=== PATIENT | male | born 1965 | race Caucasian/White ===

== ENCOUNTER 2018-03-11 09:25 | Inpatient (IN) | payer BC ==
[2018-03-11 10:18] LABS: Amphetamine Screen,Urine Not Detected (NotDetected); Barbiturate Screen,Urine Not Detected (NotDetected); Benzodiazepines Screen,Urine Not Detected (NotDetected); Cocaine Screen,Urine Not Detected (NotDetected); Methadone Screen, Urine Not Detected (NotDetected); Opiate Screen,Urine Not Detected (NotDetected); Oxycodone Screen, Urine Not Detected (NotDetected); Phencyclidine Screen,Urine Not Detected (NotDetected); Tricyclic Antidepressant,Urine Not Detected (NotDetected); Urn Cannabinoid Scrn Not Detected (NotDetected)
--- NOTE | 2018-03-11 10:32 | ED ---
Psych HPI - General Chief Complaint: Psychiatric Symptoms Stated Complaint: EPS eval Time Seen by Provider: 03/11/18 09:32 Source: patient, RN notes reviewed, old records reviewed Mode of arrival: ambulatory - History of Present Illness Initial Comments: 52-year-old male presents emergency Department with a petition from his social scientist. Apparently patient's been hearing voices. He reports that he's been diagnosed with schizophrenia anxiety and depression for many years. He is followed up outpatient only with physicians and is actively looking for psychiatrist. At this time he reports that he's been on multiple medication changes throughout the past few years. He was trying to get established with psychiatrist to figure out the exact medications he needs. He states that he has not been hearing any significant voices are telling him to harm himself. He denies any suicidal or homicidal ideation. He states that he has had some trouble sleeping, but has had increase in his appetite. He reports these been having a hard time dealing with his insurance policies in order to follow-up with psychiatrist. - Related Data Home Medications Medication Instructions Recorded Confirmed Allopurinol [Zyloprim] 100 mg PO DAILY 03/11/18 03/11/18 Colchicine [Colchicine] 0.6 mg PO DAILY 03/11/18 03/11/18 Ergocalciferol [Vitamin D2] 50,000 unit PO TH 03/11/18 03/11/18 Escitalopram [Lexapro] 20 mg PO DAILY 03/11/18 03/11/18 Tamsulosin [Flomax] 0.4 mg PO DAILY 03/11/18 03/11/18 hydrOXYzine PAMOATE 50 mg PO DAILY 03/11/18 03/11/18 Allergies Allergy/AdvReac Type Severity Reaction Status Date / Time No Known Allergies Allergy Verified 03/11/18 10:22 Review of Systems ROS Statement: Those systems with pertinent positive or pertinent negative responses have been documented in the HPI. ROS Other: All systems not noted in ROS Statement are negative. Past Medical History Past Medical History: Unable to Obtain History of Any Multi-Drug Resistant Organisms: None Reported Past Surgical History: Unable to Obtain Past Psychological History: Anxiety, Depression, Schizophrenia Smoking Status: Never smoker Past Alcohol Use History: None Reported Past Drug Use History: None Reported General Exam - General Exam Comments Initial Comments: Alert and well-appearing 52-year-old male. No acute distress. Limitations: no limitations General appearance: alert, in no apparent distress Head exam: Present: atraumatic, normocephalic, normal inspection Eye exam: Present: normal appearance, PERRL, EOMI. Absent: scleral icterus, conjunctival injection, periorbital swelling ENT exam: Present: normal exam, mucous membranes moist Neck exam: Present: normal inspection. Absent: tenderness, meningismus, lymphadenopathy Respiratory exam: Present: normal lung sounds bilaterally. Absent: respiratory distress, wheezes, rales, rhonchi, stridor Cardiovascular Exam: Present: regular rate, normal rhythm, normal heart sounds. Absent: systolic murmur, diastolic murmur, rubs, gallop, clicks GI/Abdominal exam: Present: soft, normal bowel sounds. Absent: distended, tenderness, guarding, rebound, rigid Extremities exam: Present: normal inspection, full ROM, normal capillary refill. Absent: tenderness, pedal edema, joint swelling, calf tenderness Back exam: Present: normal inspection Neurological exam: Present: alert, oriented X3, CN II-XII intact Psychiatric exam: Present: normal affect, normal mood, other (Apparently according to patient's condition and his been responding to internal stimuli. On my initial examination he has been well, he is been alert and oriented. No responses to internal stimuli. Seems to have good decision-making. Is talking about falling up with psychiatrist to change his medications appropriately according to his transplant.) Skin exam: Present: warm, dry, intact, normal color. Absent: rash Course Vital Signs 03/11/18 03/11/18 03/11/18 09:27 13:00 15:41 Temperature 98.6 F 97.5 F L Pulse Rate 99 67 66 Respiratory 18 16 16 Rate Blood Pressure 188/86 134/78 116/75 O2 Sat by Pulse 99 95 95 Oximetry Medical Decision Making - Medical Decision Making 52-year-old male sent in for psychiatric evaluation and petitioned by social scientist for responsive internal stimuli. On my exam he appears well. He seems to have good decision-making. He has not responded to any internal stimuli and has been appropriate while in the emergency room. He is medically clear for psychiatric evaluation. Patient was evaluated by EPS. They feel the patient is admitted. He is willing to sign in. Patient will be admitted at this time. - Lab Data Lab Results 03/11/18 Range/Units 09:41 Urine Opiates Screen Not Detected (NotDetected) Ur Oxycodone Screen Not Detected (NotDetected) Urine Methadone Screen Not Detected (NotDetected) Ur Propoxyphene Screen Not Detected (NotDetected) Ur Barbiturates Screen Not Detected (NotDetected) U Tricyclic Antidepress Not Detected (NotDetected) Ur Phencyclidine Scrn Not Detected (NotDetected) Ur Amphetamines Screen Not Detected (NotDetected) U Methamphetamines Scrn Not Detected (NotDetected) U Benzodiazepines Scrn Not Detected (NotDetected) Urine Cocaine Screen Not Detected (NotDetected) U Marijuana (THC) Screen Not Detected (NotDetected) Disposition Clinical Impression: Depression, Auditory hallucination Disposition: ADMITTED IP TO THIS HOSP Condition: Good Is patient prescribed a controlled substance at d/c from ED?: No If prescribed controlled substance>3 days was MAPS reviewed?: No When asked, does pt state using other controlled substances?: No Referrals: Esther Carrera DO [Primary Care Provider] - 1-2 days Time of Disposition: 15:46
[2018-03-11 13:01] VITALS: RESP 16
[2018-03-11] MEDS ORDERED: MAG HYDROX/AL HYDROX/SIMETH 30 ML CUP PO PRN (16:57)
[2018-03-11] MEDS ORDERED: ACETAMINOPHEN TAB 325 MG TAB PO PRN (16:57)
[2018-03-11] MEDS ORDERED: LORazepam 1 MG TAB PO PRN (16:57)
[2018-03-11] MEDS ORDERED: MAGNESIUM HYDROXIDE 2,400 MG/10 ML CUP PO PRN (16:57)
[2018-03-11] MEDS ORDERED: ZIPRASIDONE 20 MG VIAL IM PRN (16:57)
[2018-03-11] MEDS ORDERED: LORazepam 2 MG/ML INJ IM PRN (16:59)
[2018-03-11 17:09] VITALS: BMI 27.1
--- NOTE | 2018-03-11 21:02 | CONS ---
CONSULTATION DATE OF SERVICE: 03/11/18 REASON FOR CONSULTATION: Medical management requested by Dr. Bailey. CONSULTATION: This is a pleasant 52-year-old patient of Dr. Carrera. The patient is brought in by petition by the electromedical equipment technician. The patient has been hearing voices. The patient does have a chronic history of schizophrenia, anxiety, depression. The patient is somewhat restless during his interview, but rather pleasant otherwise. The patient's chronic stable medical conditions include BPH, gout, and GERD symptoms coming once or twice a week. The patient sometimes has trouble sleeping. REVIEW OF SYSTEMS: CONSTITUTIONAL: None. HEENT none. Respiratory none. Cardiovascular none. Gastrointestinal occasional heartburn. Genitourinary none. Musculoskeletal none. Dermatological and hematologic, lymphatic none. Psychiatry as above. Neurological none. PAST MEDICAL HISTORY: Schizophrenia, anxiety, depression, BPH, gout, GERD. PAST SURGICAL HISTORY: None stated. SOCIAL HISTORY: Lives by himself. Does not smoke or drink alcohol. Denies use of any recreational drugs. HOME MEDICATIONS: 1. Vitamin D2 50,000 units every . 2. Hydroxyzine 50 mg p.o. daily. 3. Flomax 0.4 mg daily. 4. Lexapro 20 mg p.o. daily. 5. Colchicine 0.6 mg p.o. daily. 6. Allopurinol 100 mg p.o. daily. ALLERGIES: None. PHYSICAL EXAMINATION: Temperature 97.2, pulse 71, respiration 16, blood pressure 120/71, pulse ox 96% on room air. General appearance: Average built, sitting up, somewhat restless. Eyes: Pupils equal. Conjunctivae normal. HEENT: External appearance of nose and ears normal. Oral cavity normal. Neck JVD not raised. Mass not palpable. Respiratory effort normal. Lungs are clear. Cardiovascular: First and second sounds normal. No edema. ABDOMEN: Soft, nontender. Liver, spleen, not palpable. Lymphatics: No lymph nodes palpable in the neck and axilla. Psychiatry: Patient is slightly anxious. Formal psych evaluation not done. Neurological: Pupils equal. Cranial nerves grossly intact. Power and sensation grossly intact. INVESTIGATIONS: Urine drug screen negative. ASSESSMENT: 1. Benign prostatic hypertrophy. 2. Chronic gout. 3. Gastroesophageal reflux disease. 4. Other psych history is including auditory hallucinations which is symptom. PLAN: Home medications resumed. Care was discussed with the patient. Patient should follow up with Dr. Esther Carrera upon discharge. Thank you Dr. Bailey. OMERO / TOBI: [id number] /
[2018-03-12] MEDS: TAMSULOSIN 0.4 MG CAP.ER.24H PO SCH (08:36)
[2018-03-12] MEDS: hydrOXYzine PAMOATE 25 MG CAP PO SCH (08:36)
[2018-03-12] MEDS: COLCHICINE 0.6 MG EACH PO SCH (08:36)
[2018-03-12] MEDS: ESCITALOPRAM 20 MG TAB PO SCH (08:37)
[2018-03-12] MEDS: ALLOPURINOL 100 MG TAB PO SCH (08:37)
[2018-03-12 09:23] LABS: Basophils % (A) 1 %; Eosinophils # (A) 0.1 k/uL (0-0.7); Eosinophils % (A) 1 %; HGB 15.6 gm/dL (13.0-17.5); Lymphocytes # (A) 1.5 k/uL (1.0-4.8); Lymphocytes % (A) 25 %; MCH 31.5 pg (25.0-35.0); MCHC 34.7 g/dL (31.0-37.0); MCV 90.7 fL (80.0-100.0); Mean Platelet Volume 7.2; Monocytes # (A) 0.4 k/uL (0-1.0); Monocytes % (A) 7 %; Neutrophils # (A) 3.8 k/uL (1.3-7.7); Neutrophils % (A) 63 %; Platelet Count 220 k/uL (150-450); RBC 4.96 m/uL (4.30-5.90); RDW 13.5 % (11.5-15.5); WBC 5.9 k/uL (3.8-10.6)
[2018-03-12 09:36] LABS: Albumin 3.8 g/dL (3.5-5.0); Calcium 9.3 mg/dL (8.4-10.2); Potassium 4.3 mmol/L (3.5-5.1); Total Bilirubin 1.9 mg/dL (0.2-1.3); Total Protein 6.1 g/dL (6.3-8.2)
--- NOTE | 2018-03-12 14:21 | P.HP ---
Psychiatric H&P - . History & Physical: Allergies Allergy/AdvReac Type Severity Reaction Status Date / Time No Known Allergies Allergy Verified 03/11/18 10:22 Vital Signs Temp 97.9 F 03/12/18 07:04 Pulse 82 03/12/18 07:04 Resp 16 03/12/18 07:04 BP 132/82 03/12/18 07:04 Pulse Ox 96 03/11/18 16:25 Intake & Output 03/11/18 03/12/18 03/12/18 18:59 06:59 18:59 Weight 90.718 kg Laboratory Last Values WBC 5.9 k/uL (3.8-10.6) 03/12/18 09:00 RBC 4.96 m/uL (4.30-5.90) 03/12/18 09:00 Hgb 15.6 gm/dL (13.0-17.5) 03/12/18 09:00 Hct 45.0 % (39.0-53.0) 03/12/18 09:00 MCV 90.7 fL (80.0-100.0) 03/12/18 09:00 MCH 31.5 pg (25.0-35.0) 03/12/18 09:00 MCHC 34.7 g/dL (31.0-37.0) 03/12/18 09:00 RDW 13.5 % (11.5-15.5) 03/12/18 09:00 Plt Count 220 k/uL (150-450) 03/12/18 09:00 Neutrophils % 63 % 03/12/18 09:00 Lymphocytes % 25 % 03/12/18 09:00 Monocytes % 7 % 03/12/18 09:00 Eosinophils % 1 % 03/12/18 09:00 Basophils % 1 % 03/12/18 09:00 Neutrophils # 3.8 k/uL (1.3-7.7) 03/12/18 09:00 Lymphocytes # 1.5 k/uL (1.0-4.8) 03/12/18 09:00 Monocytes # 0.4 k/uL (0-1.0) 03/12/18 09:00 Eosinophils # 0.1 k/uL (0-0.7) 03/12/18 09:00 Basophils # 0.0 k/uL (0-0.2) 03/12/18 09:00 Sodium 144 mmol/L (137-145) 03/12/18 09:00 Potassium 4.3 mmol/L (3.5-5.1) 03/12/18 09:00 Chloride 106 mmol/L (98-107) 03/12/18 09:00 Carbon Dioxide 27 mmol/L (22-30) 03/12/18 09:00 Anion Gap 11 mmol/L 03/12/18 09:00 BUN 20 mg/dL (9-20) 03/12/18 09:00 Creatinine 1.46 mg/dL (0.66-1.25) H 03/12/18 09:00 Est GFR (CKD-EPI)AfAm 62 (>60 ml/min/1.73 sqM) 03/12/18 09:00 Est GFR (CKD-EPI)NonAf 54 (>60 ml/min/1.73 sqM) 03/12/18 09:00 Glucose 101 mg/dL (74-99) H 03/12/18 09:00 Calcium 9.3 mg/dL (8.4-10.2) 03/12/18 09:00 Total Bilirubin 1.9 mg/dL (0.2-1.3) H 03/12/18 09:00 AST 20 U/L (17-59) 03/12/18 09:00 ALT 34 U/L (21-72) 03/12/18 09:00 Alkaline Phosphatase 83 U/L (38-126) 03/12/18 09:00 Total Protein 6.1 g/dL (6.3-8.2) L 03/12/18 09:00 Albumin 3.8 g/dL (3.5-5.0) 03/12/18 09:00 Triglycerides 98 mg/dL (<150) 03/12/18 09:00 Cholesterol 214 mg/dL (<200) H 03/12/18 09:00 LDL Cholesterol, Calc 145 mg/dL (0-99) H 03/12/18 09:00 HDL Cholesterol 49 mg/dL (40-60) 03/12/18 09:00 TSH 5.160 mIU/L (0.465-4.680) H 03/12/18 09:00 Urine Opiates Screen Not Detected (NotDetected) 03/11/18 09:41 Ur Oxycodone Screen Not Detected (NotDetected) 03/11/18 09:41 Urine Methadone Screen Not Detected (NotDetected) 03/11/18 09:41 Ur Propoxyphene Screen Not Detected (NotDetected) 03/11/18 09:41 Ur Barbiturates Screen Not Detected (NotDetected) 03/11/18 09:41 U Tricyclic Antidepress Not Detected (NotDetected) 03/11/18 09:41 Ur Phencyclidine Scrn Not Detected (NotDetected) 03/11/18 09:41 Ur Amphetamines Screen Not Detected (NotDetected) 03/11/18 09:41 U Methamphetamines Scrn Not Detected (NotDetected) 03/11/18 09:41 U Benzodiazepines Scrn Not Detected (NotDetected) 03/11/18 09:41 Urine Cocaine Screen Not Detected (NotDetected) 03/11/18 09:41 U Marijuana (THC) Screen Not Detected (NotDetected) 03/11/18 09:41 03/12/18 14:21 Chief complaint I wanted to talk to a counselor and they petitioned me and sent me here. History of presenting illness Patient stated his primary care physician wanted him to see a counselor , so he looked up for names on the computer and went to [facility] services in january 2018. He felt his counselor was not helping him at all and so he left [facility] counseling and went to [facility] out-patient services. When his counselor at [facility] out patient services asked how he had felt about his previous therapist , he reports telling her hypothetically that he felt like slapping her, but did not really mean it. He currently states they mis- understood me and petitioned me, He stated I dont belong here, I really want to go home because I work. Patient repots being started on lexapro in december 2017, by his primary care physician Esther To for depression, anxiety and panic attacks. He describes his depression as not wanting to do anything, laying down isolated with no motivation. He reports poor sleep and appetite when depressed. He describes his anxiety and panic attacks as not being able to handle things/ life well in general. He also reports leaving every thing at hand and running home during his panic attacks. He reports worrying excessively for every thing. He reports worrying and getting depressed if he is expecting a call from some and doesnt hear from them. He claims his depression, anxiety and panic attacks have improved significantly after being started on lexapro. He states he is now able to sleep better and is able to move around instead of staying isolated. He denies current suicidal or homicidal ideations. Prior to being started on lexapro he claims to have heard his name being called and also reports seeing figures. After being started on lexapro he denies hearing is name being called and denies seeing figures. He denies paranoia. He reports remote history of hearing noises and seeing witch flying across his apartment and some one following him in . Denies currently. He reports enjoying computer games, watching TV , yard work and his job as a school custodian. He stated he was never got petitioned even though he had said all sorts of weird things to his therapist at [facility] in . He stated he wanted to see therapist to learn coping skills, social skills, how to handle things well when ever he gets into any deal better with situations when he gets into one etc. He stated he gets fearful and does not know how to deal with situations. He felt neglected and not being helped at the [facility] , but he denies calling there and threatening people over there. Past psychiatric history He reports history of depression from his teen age years. He claims he did not seek psychiatric help until his 30s . He claims to have attempted suicide three times between ages 16 and 17, via hanging, drinking chemicals and running his car gas in the garage. He stated none of those attempts worked and he got mad with each unsuccessful attempt and states he had finally gave up on suicide. He states it is waste of time, energy and claims it is not worth it. He reports to have not made any attempts since then. He states he wants to live for his family, for his job and for himself. He reports one psychiatric hospitalization at [facility] around the age of 33 for depression. 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 He reports being treated with Zoloft, ativan around the age of 33 DURING HIS HOSPITALIZATION at [place]. Destinee Vázquez klonopin in 2015 through LILIBETH Gurrola, in [address] Fredy Gurrola and vistaril in 2017 through PCP Esther To. He reports Gastric side effects with Zoloft, but claims it had worked well for his depression. He reports recieving out patient counseling, from and treatment through [facility]. He reports being discharged from [facility] program in his 40s as they felt he had doing well even with out medications. Substance use history None reported Legal problems Denies Family psychiatric treatment history He states his father has depression and anxiety but does not know if he takes medications. Medical history Gout vit. Ddeficiency Stage 3 kidney disease BPH. Allergies NKDA Social history Born and raised in [place], [place]. He reports good childhood. Denies history of abuse. Has two older brothers. Graduated high school and attended two years of community college. 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 Not , no children. Lives alone in an apartment. Mental status exam 52 year old male. He appeared his stated age in fair grooming and hygiene. He is pleasant and cooperative. No abnormal movements noted. His speech and though process are logical and goal directed. His mood is euthymic and affect appropriate. He denies current auditory or visual hallucinations. He denies paranoia. He is alert and oriented X4. He denies current suicidal or homicidal ideations. Has fair insight and judgment. Diagnosis Major depression recurrent type Plan 52-year-old admitted through emergency Department with a petition from his licensed clinical social worker. Patient will have physical examination and psychosocial evaluation. Patient to continue Lexapro 20mg po qday for depression and vistaril 50mg po qday for anxiety. He signed consent for medications and voluntary admission form He will be monitored for symptoms. He will receive milieu therapy group therapy individual therapy occupational therapy recreational therapy and medication education. Discharge with outpatient follow-up. Treatment goals: Monitor for symptoms of psychosis. If none reported or observed , social work to coordinate discharge
[2018-03-12 19:06] LABS: Hemoglobin A1C 5.4 % (4.0-6.0)
[2018-03-13] MEDS: ALLOPURINOL 100 MG TAB PO SCH (07:59)
[2018-03-13] MEDS: COLCHICINE 0.6 MG EACH PO SCH (07:59)
[2018-03-13] MEDS: TAMSULOSIN 0.4 MG CAP.ER.24H PO SCH (08:00)
[2018-03-13] MEDS: ESCITALOPRAM 20 MG TAB PO SCH (08:00)
[2018-03-13] MEDS: hydrOXYzine PAMOATE 25 MG CAP PO SCH (08:00)
--- NOTE | 2018-03-13 18:53 | P.PN ---
Progress Note - Text Progress Note Date: 03/13/18 Patient was seen today. He reports doing well. He reports being compliant with his medications. No side effects reported. He reports good sleep and appetite. he denies current symptoms of depression. He is eager to leave the hospital, so he could return back to his work. 52 year old male. He appeared his stated age in fair grooming and hygiene. He is pleasant and cooperative. No abnormal movements noted. His speech and though process are goal directed. His mood is euthymic and affect appropriate. He denies current auditory or visual hallucinations. He denies paranoia. He is alert and oriented X4. He denies current suicidal or homicidal ideations. Has fair insight and judgment. Continue lexapro and vistaril.
[2018-03-14] MEDS: hydrOXYzine PAMOATE 25 MG CAP PO SCH (08:10)
[2018-03-14] MEDS: ESCITALOPRAM 20 MG TAB PO SCH (08:10)
[2018-03-14] MEDS: ALLOPURINOL 100 MG TAB PO SCH (08:10)
[2018-03-14] MEDS: TAMSULOSIN 0.4 MG CAP.ER.24H PO SCH (08:10)
[2018-03-14] MEDS: COLCHICINE 0.6 MG EACH PO SCH (08:10)
--- NOTE | 2018-03-14 10:54 | P.PN ---
Progress Note - Text Progress Note Date: 03/14/18 It is not clear why this patient was admitted except the possibility that he was looking for a psychiatrist to get his medications adjusted. He is on the same medication as he was prior to coming to the hospital which includes Lexapro and Vistaril. He says he feels well now and is almost ready to go home. His diagnosis done after psychiatric evaluation is major depression recurrent type. Patient is single and never been . Currently he works in the [employer]. Most of his work besides this one has been assisted. Patient is a high school graduate with 2 years of vocational school but he did not graduate. 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 He was not in any extracurricular activities. He reports of feeling depressed and anxious since his teenage years. He said he tried to hang himself at the age of 17, but the rope was too long and he didn't . He tried to kill himself 6 months later by drinking poison. But it did not taste good and he is well. Mother 6 months later he tried to kill himself by turning on the car engine in a closed garage and nothing happened. He had thought of suicide several years later but did not do anything. He denies hallucinations and delusional thinking. He reports of symptoms of depression and anxiety but it is extremely unusual for a person with the diagnosis of major depression to get better in 2-3 days while on same medication. This is a white ambulatory male with good hygiene. His hair is well trimmed has said well-maintained goatee and mustache etc. he does not show any psychomotor agitation or retardation. But he gets shaky on his left upper limp at times. His speech is spontaneous relevant, but, he tends to over inclusive or loose at times. His mood is cheerful and affect is appropriate. He cracks jokes. He denies hallucinations and delusional thinking. He denies suicidal and homicidal thoughts. He is well oriented with adequate memory concentration general knowledge etc. Assessment: Unspecified depressive disorder F 32.9. 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 Plan: Continue Lexapro and Vistaril, groups and other activities.
[2018-03-15 06:55] VITALS: BP 117/67; PULSE 57; TEMP 98.1
[2018-03-15] MEDS: COLCHICINE 0.6 MG EACH PO SCH (08:01)
[2018-03-15] MEDS: ESCITALOPRAM 20 MG TAB PO SCH (08:01)
[2018-03-15] MEDS: TAMSULOSIN 0.4 MG CAP.ER.24H PO SCH (08:01)
[2018-03-15] MEDS: ALLOPURINOL 100 MG TAB PO SCH (08:01)
[2018-03-15] MEDS: hydrOXYzine PAMOATE 25 MG CAP PO SCH (08:02)
[2018-03-15 09:31] LABS: Calcium 9.2 mg/dL (8.4-10.2); Potassium 4.7 mmol/L (3.5-5.1)
--- NOTE | 2018-03-15 10:41 | P.DS ---
Providers Date of admission: 03/11/18 15:54 Expected date of discharge: 03/15/18 Attending physician: Bin Ruth Consults: 03/11/18 16:57 Consult Physician Routine Consulting Provider: Xander Smith Consult Reason/Comments: follow up H & P Do you want consulting provider notified?: Yes Primary care physician: Esther Clark Debi [facility] Course: Patient had his psychiatric evaluation done by , and had psychosocial evaluation. After psychiatric evaluation his home medications were continued including for physical problems. Patient attended groups, interacted with staff and peers etc. He continued to be euthymic to cheerful, not suicidal or homicidal, not confused or agitated and it was agreed to discharge him. Condition on discharge: This is a white ambulatory male with good hygiene. He is polite and cheerful and cooperative. He does not show any psychomotor agitation or retardation. His speech is spontaneous relevant and goal- directed. His mood is cheerful and affect is appropriate. He denies hallucinations, delusional thinking, suicidal and homicidal ideas. He is well oriented with good memory concentration general fund of knowledge etc. His insight and judgment are adequate. Diagnosis on discharge: Unspecified depressive disorder F 32.9. 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 NKDA. Gout. BPH. Patient was advised and agreed to take his medications as prescribed, not to drink alcohol or use drugs, not to drive or operate missionary if he feels sleepy, to call his psychiatrist or therapist if he gets suicidal thoughts and if he cannot get hold of them to go to nearest ER. Patient Condition at Discharge: Good Plan - Discharge Summary New Discharge Prescriptions: Continue hydrOXYzine PAMOATE 50 mg PO DAILY Tamsulosin [Flomax] 0.4 mg PO DAILY Escitalopram [Lexapro] 20 mg PO DAILY Colchicine 0.6 mg PO DAILY Allopurinol [Zyloprim] 100 mg PO DAILY Ergocalciferol [Vitamin D2 (DRISDOL)] 50,000 unit PO TH Discharge Medication List Allopurinol [Zyloprim] 100 mg PO DAILY 03/11/18 [History] Colchicine 0.6 mg PO DAILY 03/11/18 [History] Ergocalciferol [Vitamin D2 (DRISDOL)] 50,000 unit PO TH 03/11/18 [History] Escitalopram [Lexapro] 20 mg PO DAILY 03/11/18 [History] Tamsulosin [Flomax] 0.4 mg PO DAILY 03/11/18 [History] hydrOXYzine PAMOATE 50 mg PO DAILY 03/11/18 [History] Follow up Appointment(s)/Referral(s): Esther Carrera DO [Primary Care Provider] - 1-2 days
[2018-03-17] MEDS ORDERED: ERGOCALCIFEROL 50,000 UNIT CAP PO SCH (09:00)
== END 2018-03-15 14:50 | disposition home or self-care (01) | DRG 881 ==
LOC: EC 09:25 → 3MHU 15:54
PROVIDERS: ADMIT Psychiatry & Neurology Psychiatry; ATTEND Psychiatry & Neurology Psychiatry
DX: F32.9 Major depressive disorder, single episode, unspecified (principal); F60.9 Personality disorder, unspecified; F20.9 Schizophrenia, unspecified; F41.0 Panic disorder [episodic paroxysmal anxiety]; K21.9 Gastro-esophageal reflux disease without esophagitis; M1A.9XX0 Chronic gout, unspecified, without tophus (tophi); N40.0 Benign prostatic hyperplasia without lower urinary tract symptoms; Z79.899 Other long term (current) drug therapy; Z81.8 Family history of other mental and behavioral disorders; N18.3 Chronic kidney disease, stage 3 (moderate)
CPT/HCPCS: 80048; 80053; 80061; 80306; 82075; 83036; 84439; 84443; 85025; 99285

== ENCOUNTER → 2019-08-22 | Outpatient (CLI) | payer BC ==
--- NOTE | 2019-08-22 16:11 | NM ---
EXAMINATION TYPE: NM DatScan Brain SPECT DATE OF EXAM: 08/22/2019 COMPARISON: NONE HISTORY: Essential tremor, MG 52 TECHNIQUE: 10 drops of Lugol's solution was administered 1 hour prior to injection as a thyroid bloc niko agent. After the administration of 4.58 mCi I-123 Ioflupane DaTscan. Images obtained 3 hours p ost injection. SPECT images of the brain were acquired with axial and coronal reconstructions. FINDINGS: The DaTSCAN demonstrates normal uptake of tracer throughout the striata. Consequently there is no uriel dence of loss of the pre-synaptic dopaminergic terminals on this investigation. IMPRESSION: This normal appearance is against a diagnosis of idiopathic Parkinson?s disease (PD) or a Parkinsonia n syndrome (PS) and is seen in healthy individuals and also patients with essential tremor (ET), drug induced parkinsonism, and vascular pseudo-parkinsonism.
== END | disposition home or self-care (01) ==
LOC: RADNMMAIN 10:53
PROVIDERS: ATTEND Psychiatry & Neurology Pain Medicine
DX: G25.0 Essential tremor (principal)
CPT/HCPCS: 78607; A9584